=== PATIENT | female | born 1995 | race Hispanic/Latino ===

== ENCOUNTER 2019-01-29 19:42 | Emergency (ER) | payer SELFPAY ==
[~2019-01-29] VITALS: Ht 172.7 cm; Wt 66.7 kg
[2019-01-29 21:01] LABS: BILIRUBIN,URINE NEGATIVE (NEGATIVE); CLARITY,URINE CLEAR (CLEAR); COLOR,URINE YELLOW (YELLOW); KETONES,URINE NEGATIVE (NEGATIVE); LEUKOCYTE ESTERASE ,URINE NEGATIVE (NEGATIVE); NITRITE,URINE NEGATIVE (NEGATIVE); PROTEIN,URINE DIPSTICK NEGATIVE (NEGATIVE); URINE UROBILINOGEN 0.2 mg/dL (0.2 - 1)
[2019-01-29 21:03] LABS: PREGNANCY TEST, URINE NEGATIVE (NEGATIVE)
[2019-01-29 21:13] LABS: EPITHELIAL CELLS,URINE MODERATE /LPF; RBC,URINE 0-5 /HPF (0-5); TRANSITIONAL EPI CELLS,URINE FEW
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
== END 2019-01-29 21:56 | disposition left against medical advice (07) ==
LOC: ER 19:42
DX: R55 Syncope and collapse (principal); Y04.8XXA Assault by other bodily force, initial encounter
CPT/HCPCS: 70450; 81001; 81025; 99282